=== PATIENT | male | born 1940 | race Caucasian/White ===

== ENCOUNTER 2021-09-24 13:56 | Outpatient (REF) | payer BC, SELFPAY ==
[2021-09-24 16:11] LABS: Vitamin B12 508 pg/mL (200-900)
== END 2021-09-24 13:57 | disposition home or self-care (01) ==
LOC: HO.LAB 13:56
PROVIDERS: Visit Provider Psychiatry & Neurology Neurology
DX: G30.9 Alzheimer's disease, unspecified (principal)
CPT/HCPCS: 36415; 82607

== ENCOUNTER 2023-03-01 10:38 | Outpatient (REF) | payer MEDICARE, SELFPAY | END 2023-03-01 10:39 | disposition home or self-care (01) | LOC: HO.HOSX 10:38 | PROVIDERS: Visit Provider Orthopaedic Surgery | DX: Z13.89 Encounter for screening for other disorder (principal) ==

== ENCOUNTER 2023-05-17 10:15 | Outpatient (REF) | payer MEDICARE, SELFPAY ==
--- NOTE | ~2023-05-17 | XR_ITS ---
EXAMINATION: XR KNEE, RIGHT CLINICAL INFORMATION: Pain in right knee. COMPARISON: None available. TECHNIQUE: Three views of the right knee. FINDINGS: Kvgwikbp-kb-euiwa joint effusion. Status post right knee total arthroplasty. Alignment maintained. Bones are diffusely demineralized. Tiny dense focus along the superomedial aspect of the proximal fibula is of uncertain etiology. XR/XR knee RT 3V IMPRESSION: 1. Status post right knee total arthroplasty. Alignment maintained. 2. Mlwcuwpt-qq-kemxu joint effusion. 3. Tiny dense focus along the superomedial aspect of the proximal fibula is of uncertain etiology.
== END 2023-05-17 10:16 | disposition home or self-care (01) ==
LOC: HO.HOSX 10:15
PROVIDERS: Visit Provider Orthopaedic Surgery
DX: M25.561 Pain in right knee (principal); Z96.651 Presence of right artificial knee joint; Z79.899 Other long term (current) drug therapy
CPT/HCPCS: 73562; 99212

== ENCOUNTER 2023-05-17 14:58 | Outpatient (AMB) | payer MEDICARE, SELFPAY ==
--- NOTE | 2023-05-17 15:00 | MHC.OFFVIS ---
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 Lara. Patient reports he is here for a follow up right TKA in June 23, 2021. The patient reports mild intermittent discomfort in his knee. He denies any fevers or chills. The patient states that he has tripped and fallen several times over the last 6 months. He denies any significant injury. He continues with his home exercise program. He does not take any medicines for his discomfort. Allergies acetaminophen [From Vicodin] Allergy (Mild, Verified 05/17/23 15:14) hives hydrocodone [From Vicodin] Allergy (Mild, Verified 05/17/23 15:14) hives Sulfa (Sulfonamide Antibiotics) Allergy (Mild, Verified 05/17/23 15:14) Hives bactrim Allergy (Mild, Uncoded 05/17/23 15:14) Hives levequin Allergy (Mild, Uncoded 05/17/23 15:14) hive Medication List - Last Reconciled 05/18/23 by Baldo Lara MD allopurinol 300 mg PO DAILY amoxicillin 2,000 mg (4 x 500 mg) PO ONCE donepezil 5 mg PO DAILY finasteride 5 mg PO DAILY mirtazapine 7.5 mg PO BEDTIME nifedipine ER mg PO sertraline 50 mg PO DAILY PFSH Social History (Updated 05/17/23 @ 15:08 by Rupa Marshall CMA) Patient Tobacco Use Status: Never used Tobacco Current occupational status: retired Current occupation: right hand dominate Physical Exam Vital Signs: BMI result Body Mass Index 31.5 Const Other: Well-nourished well-developed very friendly male awake alert and oriented x3 in no acute distress Extrem Other: Bilateral lower extremity examination shows good capillary refill, no skin lesions noted, normal sensation light touch Right knee examination shows that the surgical incision is well healed, no erythema, full active extension and flexion 120 degrees, his patella tracks well Results Reviewed Results Reviewed: X-rays of the patient's right knee show a total knee arthroplasty in good position with no signs of loosening, no acute bony abnormalities Assessment & Plan Assessment & Plan (1) Right knee pain: Code(s): M25.561 - Pain in right knee Plan Mr. Burch continues to do well after undergoing right total knee replacement surgery on 06/23/2021. Will continue with his home exercise program. He does know to take antibiotics before any dental work. Will contact me prior to his annual follow-up appointment should any questions or concerns arise. I spent 19 minutes in reviewing the patient's records and imaging studies, seeing the patient and documenting in the medical record. Orders: Orders XR knee RT 3V 05/17/23 M25.561 - Pain in right knee Medications: New amoxicillin Take four caps (2,000 mg) one hour before any dental work 2,000 mg (4 x 500 mg) PO ONCE 20 caps 2RF Coding Level of Care Code Est Pt Level 2 (64273) Diagnoses Right knee pain M25.561
[2023-05-17 15:03] VITALS: BMI 31.5
== END 2023-05-17 15:39 | disposition home or self-care (01) ==
PROVIDERS: Visit Provider Orthopaedic Surgery
DX: M25.561 Pain in right knee (principal)
CPT/HCPCS: 99213

== ENCOUNTER 2024-03-07 10:03 | Outpatient (REF) | payer MEDICARE, SELFPAY ==
--- NOTE | ~2024-03-07 | XR_ITS ---
EXAMINATION: XR KNEE 3 VIEWS RIGHT HISTORY: M25.561 - Pain in right knee COMPARISON: There are no prior studies for comparison. FINDINGS: Three views of the right knee are submitted. The patient is again noted to be status post right total knee arthroplasty. The orthopedic elements are in anatomic alignment. There is no radiographic evidence of loosening. There is no fracture or dislocation. There is no joint effusion. The soft tissues are unremarkable. XR/XR knee RT 3V IMPRESSION: Status post right total knee arthroplasty. Electronically signed by: Jarek Addison MD 03/08/2024 07:56 AM SYED
--- OUTSIDE RECORDS SUMMARY | 2024-03-08 13:14 | XMS_ITS | Encounter Summary ---
Author Organization [facility], Address [address] [place] [address] Phone Care Team Providers Care Resaw Carriage Operator Name Role Phone Shasta Serrato Primary Care Provider [phone] Encounter Details Date Type Department Care Team (Late st Contact Info) Description 01/21/2022 Documentation Only [facility], [address] [place] [address] Shasta Serrato [address] [place] [id number] Social History Tobacco Use Types Packs/Day Years Used Date Smoking Tobacco: Never Assessed Sex and Gender Information Value Date Recorded Sex Assigned at Not on file Legal Sex Male 2:18 PM EST Gender Identity Not on file Sexual Orientation Not on file documented as of this encounter Plan of Treatment Not on file documented as of this encounter Visit Diagnoses Not on filedocumented in this encounter Care Teams Resaw Carriage Operator Relationship Specialty Start Date End Date Shasta Serrato PCP - General 01/21/22 documented as of this encounter
--- OUTSIDE RECORDS SUMMARY | 2024-03-08 13:14 | XMS_ITS | Clinical Summary ---
Author Organization [facility] it Address [address] [place] [address] Care Team Providers Care Lacquer Machine Feeder Name Role Phone Shasta Serrato MD Primary Care Pr ovider Allergies Active Allergy Reactions Criticality Noted Date Comments Amlodipine Cough 12/08/2021 Bee Venom Protein (Honey Bee) 2018 Hydrocodone-Acetaminophen Hives 01/22/2009 Levofloxacin Hives 01/22/2009 Lisinopril Cough 01/06/2019 Dry cough Sulfa (Sulfonamide Antibiotics) Hives 01/07 Sulfamethoxazole-Trimethoprim 2016 Medications Medication Sig Dispensed Refills Start Date End Date Status allopurinoL (ZYLOPRIM) 300 mg tablet TAKE 1 TABLET BY MOUTH EVERY DAY 06/29/2022 Active aspirin (Vazalore) 81 mg capsule Take by mouth. Active cholecalciferol (VITAMIN D-3) 50 mcg (2,000 unit) capsule Take 1 Capsule by mouth daily. 01/08/2022 Active EPINEPHrine (EpiPen 2-Don) 0.3 mg/0.3 mL injection Inject 0.3 mg into the muscle as needed for Other (anaphylactic reaction). 2-pack. Fill with whichever brand is covered by insurance. 01/08/2022 Active finasteride (PROSCAR) 5 mg tablet TAKE 1 TABLET BY MOUTH EVERY DAY 06/29/2022 Active gabapentin (NEURONTIN) 100 mg capsule Take 1 Capsule by mouth at bedtime. 02/22/2022 Active multivit-min/folic acid/lutein (CENTRUM SILVER ORAL) Take by mouth daily. Active vit A/vit C/vit E/zinc/copper (PRESERVISION AREDS ORAL) Take by mouth daily. Active predniSONE (DELTASONE) 1 mg tablet Take 5 Tablets by mouth 2 times daily. 10/02/2021 Active sertraline (ZOLOFT) 25 mg tablet Take 25 mg by mouth daily. Active Active Problems Problem Noted Date Diagnosed Date Periodic limb movement disorder 02/17/2022 Dyspnea 12/16/2021 Overview (02/02/2024): Last Assessment & Plan: Patient complains of some shortness of breath. And has PVCs we will get a do a stress echo to check for cardiomyopathic process valvular process and for possible ischemia he should be able to do a modified Dave protocol given his knee replacement he is able to mow the lawn with a push mower if the stress echo is normal I would not pursue the PVCs any further at this time. Moderate obstructive sleep apnea 12/16/2021 Overview (02/02/2024): Last Assessment & Plan: Sleep study done on 01/12/2022 Showed moderate obstructive sleep apnea exacerbated significantly by REM sleep and associated with significant oxygen desaturations and sleep fragmentation. Recommendation is for CPAP titration study which was ordered. Also showed periodic limb movements Abnormal Holter exam 12/15/2021 Alzheimer disease 10/02/2021 Overview (02/02/2024): Seen by Dr. Marti at [facility]. Started on sertraline 25 mg daily. 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 Stress echo will be pending. No need to change medical management at this time. Bilateral chronic knee pain 05/06/2020 Osteoarthritis of multiple joints 05/06/2020 Gastritis and duodenitis 05/10/2018 PMR (polymyalgia rheumatica) 01/07/2017 Overview (02/02/2024): Dr. 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 Allopurinol for uric acid stone disease Immunizations Name Administration Dates Next Due Influenza Quadravalent, MDCK , 0.5ml, with preservative (Flucelvax) 6mo and older 01/07/2017 Influenza trivalent, 0.5mL ( Fluzone High-dose) 65yo and older 11/18/2021,10/27/2020,10/28/2019,11/23,11/08/2017 Influenza trivalent, with pr eservative (Fluzone; Afluria) 6mo and older 11/27/2014,01/22/2014,11/14/2012,11/10,11/09/2010 Pfizer SARS-CoV-2 COVID-19, mRNA, LNP-S, preservative free 04/05/2020,03/15/2020 Pneumococcal conjugate 13 va lent (Prevnar 13, PCV13) 2mo and older 11/27/2014 Pneumococcal polysaccharide 23 valent (Pneumovax 23) 2yo and older 01/22/2009 Tdap Tetanus diptheria acell ular pertussis (Boostrix; Adacel) 7yo and older 11/14/2012 Zoster recombinant (Shingrix ) 19yo and older 04/06/2019 Surgical History Surgery Date Site/Laterality Comments KIDNEY STONE SURGERY PROCEDURE: [facility] NEPHROLITHOTOMY REMOVAL CALCULUS SHOULDER SURGERY Right PROCEDURE: HISTORICAL SHOULDER SURGERY; COMMENT: fall w/ shoulder injury EYE SURGERY Left PROCEDURE: HISTORICAL EYE SURGERY; COMMENT: gas bubble placed in vitreous x2 CATARACT EXTRACTION Bilateral PROCEDURE: HISTORICAL CATARACT REMOVAL COLONOSCOPY 2002 PROCEDURE: HISTORICAL COLONOSCOPY; COMMENT: [place]; normal and complete. COLONOSCOPY 12/2011 PROCEDURE: HISTORICAL COLONOSCOPY; COMMENT: [place]; negative to the ascending colon; incomplete exam. COLONOSCOPY 10/2006 PROCEDURE: HISTORICAL COLONOSCOPY; COMMENT: [place]; negative to the ascending colon; incomplete exam. OTHER SURGICAL HISTORY 02/14/2017 PROCEDURE: CT COLONOGRAPHY SCREENING IMAGE POSTPROCESSING; COMMENT: [place]; negative colon cancer screening exam. UPPER GASTROINTESTINAL ENDOSCOPY 05/10/2018 PROCEDURE: UT UPPER GI ENDOSCOPY PERFORMED; COMMENT: gastritis and duodenitis: gastric bx negative for H. pylori. KNEE ARTHROSCOPY 05/25/2021 Right PROCEDURE: UT ARTHROSCOPY KNEE DIAGNOSTIC W/WO SYNOVIAL BX SPX; COMMENT: Dr. 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 Rios on prednisone Obstructive sleep apnea 11/09/2021 DX:Obstr uctive sleep apnea; COMMENT: Dx 10/2021 Osteoarthritis of right knee DX: Osteoarthritis of right knee Gout DX:Gout Gastritis DX:Gastritis Nephrolithiasis DX:Nephrolithias is Bilateral chronic knee pain DX:B ilateral chronic knee pain Family History Medical History Relation Name Comments Stroke Mother pt unsure if st ven[place]ke, at 85 Colon cancer Sister 1 Other: Cancer, anaplastic thyroid Sister 2 Relation Name Status Comments Father (Age 85) ? Mother (Age 86) htn, cva Sister 1 (Age 62) colon canc er Sister 2 (Age 73) tyerorick magana ncer Social History Tobacco Use Types Packs/Day Years Used Date Smoking Tobacco: Former Smokeless Tobacco: Never Alcohol Use Standard Drinks/Week Comments Yes 1 (1 standard drink = 0.6 oz pur e alcohol) Sex and Gender Information Value Date Recorded Sex Assigned at Not on file Gender Identity Not on file Sexual Orientation Not on file Obstetrics History Last Filed Vital Signs Vital Sign Reading Time Taken Comments Blood Pressure 134/74 01/08/2022 1:17 PM EST Pulse 80 01/08/2022 1:17 PM EST Temperature - - Respiratory Rate - - Oxygen Saturation - - Inhaled Oxygen Concentration - - Weight 82.1 kg (181 lb) 01/08/2022 1:17 PM EST Height 167.6 cm (5' 6 ) 01/08/2022 1:17 PM EST Body Mass Index 29.21 01/08/2022 1:17 PM EST Plan of Treatment Health Maintenance Due Date Last Done Comments RSV Immunization Patients 60+ Years Old (1 - 1-dose 75+ series) 2016 Zoster Vaccines (2 of 2) 06/01/2019 04/06/2019 Depression Screening 01/16/2022 Falls Risk Assessment 01/16/2022 Social Influencers of Health Screening 01/16/2022 Hypertension/CHF/CAD Annual BMP Blood Test 04/24/2022 04/24/2021 DTaP,Tdap,and Td Vaccines (2 - Td or Tdap) 11/14/2022 11/14/2012 Colorectal Cancer Screening: Colonoscopy 01/12/2023 01/12/2018 COVID-19 Vaccine ( season) 2023 12/22/2020, 04/05/2020, 03/15/2020 Influenza Vaccine (#1) 2023 , 10/27/2020, 10/28/2019, Additional history exists Cholesterol Screening (Lipid Panel) 11/18/2026 11/18/2021 Pneumococcal Vaccine: 65+ Years Completed 11/27/2014, 01/22/2009 HIB Vaccines Aged Out No longer eligi ble based on patient's age to complete this topic HPV Vaccines Aged Out No longer eligi ble based on patient's age to complete this topic Hepatitis A Vaccines Aged Out No long er eligible based on patient's age to complete this topic Hepatitis B Vaccines Aged Out No long er eligible based on patient's age to complete this topic IPV Vaccines Aged Out No longer eligi ble based on patient's age to complete this topic MMR Vaccines Aged Out No longer eligi ble based on patient's age to complete this topic Meningococcal ACWY Vaccine Aged Out N o longer eligible based on patient's age to complete this topic RSV Immunization Patients Under 20 months Aged Out No longer eligible based on patient's age to complete this topic Varicella Vaccines Aged Out No longer eligible based on patient's age to complete this topic Procedures Procedure Name Priority Date/Time Associated Diagnosis Comments LIPID PANEL Routine 11/18/2021 ANNUAL BMP BLOOD TEST Routine 04/24/2021 COLONOSCOPY Routine 01/12/2018 from Last 3 Months or Most Recently Relevant to Health Maintenance Results * (ABNORMAL) Lipid panel (11/18/2021) [facility] LDL/HDL Ratio 3 0 - 4 Triglycerides 150 0 - 150 mg/dL Cholesterol 209(A) 0 - 200 mg/dL HDL 77 40 mg/dL LDL Cholesterol 102(A) 0 - 100 mg/dL Blood Venous blood specimen / Unknown Historical Provider LAB BLOOD ORDERAB LES * Annual BMP Blood Test (04/24/2021) Pathologist [facility] Annual BMP Blood Test Abstracted Historical Provider MD LEXIS HERNANDEZ E * Colonoscopy (01/12/2018) Pathologist [facility] Colonoscopy Abstracted, no interpretation Anatomical Region Laterality Modality Other Historical Provider MD LEXIS Keys from Last 3 Months or Most Recently Relevant to Health Maintenance Advance Directives Documents on File Type Date Recorded Patient Deep Fat Cook Fry Expl anation Health Care Decision (hx) 05/25/2021 AD DELA CRUZ DIRECTIVE Health Care Decision (hx) 05/25/2021 AD DELA CRUZ DIRECTIVE Health Care Decision (hx) 05/25/2021 AD DELA CRUZ DIRECTIVE Health Care Decision (hx) 05/25/2021 AD DELA CRUZ DIRECTIVE Health Care Decision (hx) 05/25/2021 AD DELA CRUZ DIRECTIVE Health Care Decision (hx) 05/25/2021 AD DELA CRUZ DIRECTIVE Health Care Decision (hx) 05/25/2021 AD DELA CRUZ DIRECTIVE Health Care Decision (hx) 05/25/2021 AD DELA CRUZ DIRECTIVE Care Teams Lacquer Machine Feeder Relationship Specialty Start Date End Date Shasta Serrato MD [address] [place] [address] PCP - General Internal Medicine 08/24/21
--- OUTSIDE RECORDS SUMMARY | 2024-03-08 13:14 | XMS_ITS | Clinical Summary ---
Author Organization [facility] Address [address] [place] [address] Care Team Providers Care Condenser Tester Name Role Phone Nicole Jernigan MD Primary Care Provider [phone] Allergies Active Allergy Reactions Criticality Noted Date Comments Sulfamethoxazole-Trimethopri m 04/20/2017 Hydrocodone-Acetaminophen 01/22/2009 Other reaction(s): Hives/Urticaria Levofloxacin 04/20/2017 Lisinopril 01/06/2019 Other reaction(s): Cough Dry cough Sulfa Antibiotics 04/20/2017 Hydrocodone-Acetaminophen 04/20/2017 Medications Medication Sig Dispensed Refills Start Date End Date Status allopurinol (ZYLOPRIM) 300 MG tablet 0 03/31/2017 Active amLODIPine (NORVASC) tablet 5 mg 0 03/30/2017 Active GAVILYTE-G 236 g solution 0 02/09/2017 Active predniSONE (DELTASONE) 1 MG tablet 0 04/04/2017 Active EPINEPHrine 0.3 MG/0.3ML SOSY Inject 0.3 mg into the muscle. 0 03/07/2020 Active finasteride (PROSCAR) 5 MG tablet 0 01/24/2021 Active naproxen sodium (ALEVE) 220 MG tablet Take 2 tablets by mouth. 0 Active NIFEdipine ER (ADALAT CC) 30 MG 24 hr tablet 0 02/12/2021 Active traZODone (DESYREL) 50 MG tablet Take 50 mg by mouth every night at bedtime. 0 04/24/2021 Active amoxicillin (AMOXIL) 500 MG tablet Take 4 tabs 1 hour prior to dental appointment, 20 tablet 3 06/09/2021 Active HYDROmorphone (Dilaudid) 2 MG tablet Take 1 tab every 6 hours as needed for pain. May fill for lesser quantity. 32 tablet 0 06/23/2021 Active Acetaminophen Extra Strength 500 MG tablet Take 1,000 mg by mouth 3 (three) times a day. 0 05/27/2021 Active losartan (COZAAR) tablet 25 mg Take 25 mg by mouth daily. 0 10/02/2021 Active meclizine (ANTIVERT) 25 MG tablet TAKE 1 TABLET BY MOUTH THREE TIMES A DAY NEEDED FOR DIZZINESS 0 09/15/2021 Active sertraline (ZOLOFT) 25 MG tablet Take 25 mg by mouth daily. for 30 days 0 10/19/2021 Active Active Problems Problem Noted Date Diagnosed Date Postop check 06/09/2021 Primary osteoarthritis of both knees 04/20/2017 Family History Medical History Relation Name Comments Cancer Sister Relation Name Status Comments Sister Social History Tobacco Use Types Packs/Day Years Used Date Smoking Tobacco: Never Alcohol Use Standard Drinks/Week Comments No 0 (1 standard drink = 0.6 oz pur e alcohol) Sex and Gender Information Value Date Recorded Sex Assigned at Not on file Gender Identity Not on file Sexual Orientation Not on file Job Start Date Occupation Industry Not on file Not on file Not on file Last Filed Vital Signs Vital Sign Reading Time Taken Comments Blood Pressure - - Pulse - - Temperature - - Respiratory Rate - - Oxygen Saturation - - Inhaled Oxygen Concentration - - Weight 79.4 kg (175 lb) 04/20/2017 2:42 PM EDT Height 157.5 cm (5' 2 ) 04/20/2017 2:42 PM EDT Body Mass Index 32.01 04/20/2017 2:42 PM EDT Plan of Treatment Health Maintenance Due Date Last Done Comments Depression Screening 1952 Preventative Health Evaluation 09/18/1958 Fall Risk Assessment 2006 RSV Adult > 60+ Yrs or (1 - 1-dose 75+ series) 2016 Shingrix-Zoster Vaccine (2 of 2) 06/01/2019 04/06/2019 DTap / Tdap / Td (2 - Td or Tdap) 11/14/2022 11/14/2012 COVID-19 Vaccine ( season) 2023 12/22/2020, 04/05/2020, 03/15/2020 Influenza Vaccine (#1) 2023 1, 10/28/2019, 11/23/2018, Additional history exists Pneumococcal Vaccine Completed 11/27/2014, 01/23/20 09 Hepatitis B Vaccines Aged Out No long er eligible based on patient's age to complete this topic RSV Ped < 20 months Aged Out No longe r eligible based on patient's age to complete this topic Care Teams Condenser Tester Relationship Specialty Start Date End Date Nicole Jernigan MD PCP - General Internal Medicine 03/28/17
--- OUTSIDE RECORDS SUMMARY | 2024-03-08 13:14 | XMS_ITS | Clinical Summary ---
Author Organization [facility], Address [address] [place] [address] [place] [address] Phone Care Team Providers Care Calcine Furnace Loader Name Role Phone Shasta Serrato Primary Care Provider Allergies Active Allergy Reactions Criticality Noted Date Comments Hydrocodone-Acetaminophen 01/22/2009 Other reaction(s): Hives/Urticaria Levofloxacin 04/20/2017 Lisinopril 01/06/2019 Other reaction(s): Cough Dry cough Sulfa Antibiotics 04/20/2017 Sulfamethoxazole-Trimethopri m 04/20/2017 Medications traZODone (DESYREL) 50 MG tablet Take 50 mg by mouth 2 Active sertraline (ZOLOFT) 25 MG tablet Take 25 mg by mouth 2 Active meclizine (ANTIVERT) 25 MG tablet TAKE 1 TABLET BY MOUTH THREE TIMES A DAY NEEDED FOR DIZZINESS 2 Active losartan (COZAAR) 25 MG tablet Take 25 mg by mouth 1 (one) time each day 2 Active HYDROmorphone (DILAUDID) 2 MG tablet Take 1 tab every 6 hours as needed for pain. May fill for lesser quantity. 2 Active finasteride (PROSCAR) 5 MG tablet 1 Active allopurinol (ZYLOPRIM) 300 MG tablet 8 Active NIFEdipine CC (ADALAT CC) 30 MG 24 hr tablet TAKE 1 TABLET (30 MG TOTAL) BY MOUTH IN THE MORNING AND IN THE EVENING 180 tablet 1 3 Active Active Problems Problem Noted Date Diagnosed Date Hypertension 02/18/2022 Acute nontraumatic kidney injury 02/18/2022 Vitamin D deficiency 02/18/2022 Chronic kidney disease 02/18/2022 Social History Tobacco Use Types Packs/Day Years Used Date Smoking Tobacco: Former Cigarettes Tobacco Cessation:Counseling Given: Not Answered Alcohol Use Standard Drinks/Week Comments Yes 0 (1 standard drink = 0.6 oz pur e alcohol) Sex and Gender Information Value Date Recorded Sex Assigned at Not on file Legal Sex Male 2:18 PM EST Gender Identity Not on file Sexual Orientation Not on file Last Filed Vital Signs Vital Sign Reading Time Taken Comments Blood Pressure 134/73 09/28/2022 4:34 PM EDT Pulse 62 09/28/2022 4:34 PM EDT Temperature - - Respiratory Rate - - Oxygen Saturation - - Inhaled Oxygen Concentration - - Weight - - Height - - Body Mass Index - - Plan of Treatment Health Maintenance Due Date Last Done Comments Influenza Vaccine (#1) 2023 2, 10/27/2020, 10/28/2019, Additional history exists Pneumococcal Vaccine: 65+ Years Completed 11/27/2014, 01/22/2009 Hepatitis B Vaccine Aged Out No longe r eligible based on patient's age to complete this topic Insurance Care Teams Calcine Furnace Loader Relationship Specialty Start Date End Date Shasta Serrato PCP - General 01/21/22
== END 2024-03-07 10:04 | disposition home or self-care (01) ==
LOC: HO.HOSX 10:03
PROVIDERS: Visit Provider Orthopaedic Surgery
DX: M25.561 Pain in right knee (principal); Z96.651 Presence of right artificial knee joint
CPT/HCPCS: 73562; 99212